=== PATIENT | male | born 1935 | race Caucasian/White ===

== ENCOUNTER 2021-10-15 21:52 | Emergency (ER) | payer MEDICARE ==
[2021-10-15] MEDS ORDERED: DIGOXIN0.125 MG PO (22:40)
[2021-10-15] MEDS ORDERED: DOXYCYC MONO100 M2 PO (22:41)
[2021-10-15] MEDS ORDERED: ALLOPURINOL100 MG PO (22:41)
[2021-10-15] MEDS ORDERED: K-DUR/KLOR-CON20 MEQ PO ×2 (22:42→23:50)
[2021-10-15] MEDS ORDERED: METOPROL TAR25 MG PO (22:43)
[2021-10-15] MEDS ORDERED: SIMVASTATIN10 MG PO (22:44)
[2021-10-15] MEDS ORDERED: ELIQUIS2.5 MG (22:45)
[2021-10-15] MEDS ORDERED: FUROSEMIDE20 MG PO (22:45)
[2021-10-15 22:47] LABS: HEMATOCRIT 32.5 % (39.0-50.0); HEMOGLOBIN 10.4 g/dl (14.0-18.0); IMMATURE GRANULOCYTES 0.2 % (0.0-5.0); MEAN CELL VOLUME 95.6 fL CALC (80.0-100.0); MEAN CORPUSCULAR HGB 30.6 pG CALC (26.0-32.0); NEUT# 3.42 thou/uL (1.82-7.42); RED BLOOD COUNT 3.4 mill/uL (4.70-6.10); RED CELL DISTRI WIDTH 15.9 % (11.5-15.5)
[2021-10-15 23:07] LABS: ALBUMIN 3.7 g/dL (3.2-5.0); ALKALINE PHOSPHATASE 136 u/l (38-126); ANION GAP 15 (6-22 (CALC)); BILIRUBIN, TOTAL 0.9 mg/dL (0.0-1.4); BUN 29 mg/dL (8-23); BUN/CREATININE RATIO 20 (12-20 (CALC)); CARBON DIOXIDE 23 mmol/l (22-30); CHLORIDE 102 mmol/l (95-108); CREATININE 1.4 mg/dL (0.7-1.3); GFR 48 ML/MIN (>=60 (CALC)); GFR FOR AFR.AMER. 58 ML/MIN (>=60 (CALC)); POTASSIUM 4.2 mmol/l (3.5-5.1); SGOT/AST 43 u/l (19-48); SODIUM 135 mmol/l (137-146); TOTAL PROTEIN 6.9 g/dL (6.3-8.2)
[2021-10-15 23:19] LABS: MYOGLOBIN 104 ng/mL (0 - 121)
[2021-10-15] MEDS ORDERED: LASIX20 MG PO (23:50)
[2021-10-15] MEDS ORDERED: METOLAZONE5 MG PO (23:50)
[2021-10-16 00:26] VITALS: BP 156/89
== END 2021-10-16 00:25 | disposition home or self-care (01) ==
LOC: ED 21:52
PROVIDERS: Family Medicine
DX: I11.0 Hypertensive heart disease with heart failure (principal); I50.9 Heart failure, unspecified; I48.91 Unspecified atrial fibrillation; M10.9 Gout, unspecified

== ENCOUNTER 2021-10-25 13:41 | Emergency (ER) | payer MEDICARE ==
[~2021-10-25] VITALS: Ht 162.6 cm; Wt 73.2 kg
[~2021-10-25 13:41] MED LIST: ALLOPURINOL100 MG PO; DIGOXIN0.125 MG PO; DOXYCYC MONO100 M2 PO; ELIQUIS2.5 MG; FUROSEMIDE20 MG PO; K-DUR/KLOR-CON20 MEQ PO; LASIX20 MG PO; METOLAZONE5 MG PO; METOPROL TAR25 MG PO; SIMVASTATIN10 MG PO
[2021-10-25 14:24] VITALS: BP 121/59
== END 2021-10-25 14:24 | disposition home or self-care (01) ==
LOC: ED 13:41
DX: Z46.6 Encounter for fitting and adjustment of urinary device (principal); I48.91 Unspecified atrial fibrillation; I10 Essential (primary) hypertension; M10.9 Gout, unspecified

== ENCOUNTER 2021-10-26 07:03 | Emergency (ER) | payer MEDICARE ==
[~2021-10-26] VITALS: Ht 162.6 cm; Wt 80.0 kg
[2021-10-26 07:18] VITALS: BP 144/82
== END 2021-10-26 07:56 | disposition home or self-care (01) ==
LOC: ED 07:03
PROC: 0T9B70Z Drainage of Bladder with Drainage Device, Via Natural or Artificial Opening (ICD-10-PCS; principal; 2021-10-26)
DX: N40.1 Benign prostatic hyperplasia with lower urinary tract symptoms (principal); R33.8 Other retention of urine; I10 Essential (primary) hypertension; I48.91 Unspecified atrial fibrillation; M10.9 Gout, unspecified

== ENCOUNTER 2021-11-13 14:29 | Emergency (ER) | payer MEDICARE ==
[~2021-11-13] VITALS: Ht 162.6 cm; Wt 64.0 kg
[2021-11-13 15:44] VITALS: BP 120/68
== END 2021-11-13 15:38 | disposition home or self-care (01) ==
LOC: ED 14:29
DX: Z46.6 Encounter for fitting and adjustment of urinary device (principal); I10 Essential (primary) hypertension; I48.91 Unspecified atrial fibrillation; M10.9 Gout, unspecified

== ENCOUNTER 2022-03-09 22:48 | Emergency (ER) | payer MEDICARE ==
[~2022-03-09] VITALS: Ht 162.6 cm; Wt 77.0 kg
[2022-03-09 23:43] LABS: HEMATOCRIT 36.6 % (39.0-50.0); HEMOGLOBIN 11.8 g/dl (14.0-18.0); IMMATURE GRANULOCYTES 0.1 % (0.0-5.0); MEAN CELL VOLUME 99.5 fL CALC (80.0-100.0); MEAN CORPUSCULAR HGB 32.1 pG CALC (26.0-32.0); MEAN CORPUSCULAR HGB CONC 32.2 g/dL CAL (32.0-36.0); RED BLOOD COUNT 3.68 mill/uL (4.70-6.10)
[2022-03-09 23:49] LABS: ALBUMIN 3.5 g/dL (3.2-5.0); ALKALINE PHOSPHATASE 151 u/l (38-126); BUN 24 mg/dL (8-23); BUN/CREATININE RATIO 19 (12-20 (CALC)); CARBON DIOXIDE 24 mmol/l (22-30); CHLORIDE 107 mmol/l (95-108); CREATININE 1.3 mg/dL (0.7-1.3); GFR 52 ML/MIN (>=60 (CALC)); GFR FOR AFR.AMER. > 60 ML/MIN (>=60 (CALC)); TOTAL PROTEIN 6.7 g/dL (6.3-8.2)
[2022-03-09 23:51] LABS: ANION GAP 15 (6-22 (CALC)); BILIRUBIN, TOTAL 0.5 mg/dL (0.0-1.4); SGOT/AST 80 u/l (19-48); SODIUM 142 mmol/l (137-146)
[2022-03-10 00:01] LABS: MYOGLOBIN 71 ng/mL (0 - 121)
[2022-03-10] MEDS ORDERED: ZITHROMAX250 MG PO (00:16)
[2022-03-10 00:44] VITALS: BP 103/60
[2022-03-11] MEDS ORDERED: KLOR-CON M1010 MEQ PO (09:35)
[2022-03-11] MEDS ORDERED: ELIQUIS5 MG PO (09:36)
[2022-03-11] MEDS ORDERED: FUROSEMIDE20 MG PO (09:36)
[2022-03-11] MEDS ORDERED: ZOCOR20 M1 PO (09:38)
[2022-03-11] MEDS ORDERED: TOPROL XL25 M1 PO (09:39)
[2022-03-11] MEDS ORDERED: FINASTERIDE5 MG PO (09:39)
[2022-03-11] MEDS ORDERED: TAMSULOSIN HCL0.4 MG PO (09:40)
[2022-03-11] MEDS ORDERED: HYDROCO/APAP1 TA9 PO (09:40)
[2022-03-11] MEDS ORDERED: DOCUSATE CAL240 MG PO (09:41)
== END 2022-03-10 00:44 | disposition home or self-care (01) ==
LOC: ED 22:48
PROVIDERS: Emergency Medicine
DX: J18.9 Pneumonia, unspecified organism (principal); I10 Essential (primary) hypertension; I48.91 Unspecified atrial fibrillation; M10.9 Gout, unspecified; Z20.822 Contact with and (suspected) exposure to COVID-19

== ENCOUNTER 2022-03-11 02:39 | Observation (INO) | payer MEDICARE ==
[2022-03-11] VITALS (17 sets, daily range): BP systolic 92–130; BP diastolic 48–78
[~2022-03-11] VITALS: Ht 162.6 cm; Wt 77.0 kg
[~2022-03-11 02:39] MED LIST changes: +ZITHROMAX250 MG PO
[2022-03-11 03:15] LABS: HEMATOCRIT 40.8 % (39.0-50.0); HEMOGLOBIN 12.9 g/dl (14.0-18.0); IMMATURE GRANULOCYTES 0.3 % (0.0-5.0); MEAN CELL VOLUME 99.5 fL CALC (80.0-100.0); MEAN CORPUSCULAR HGB 31.5 pG CALC (26.0-32.0); MEAN CORPUSCULAR HGB CONC 31.6 g/dL CAL (32.0-36.0); NEUT# 3.83 thou/uL (1.82-7.42); RED BLOOD COUNT 4.1 mill/uL (4.70-6.10); RED CELL DISTRI WIDTH 14.9 % (11.5-15.5)
[2022-03-11 03:30] LABS: ALKALINE PHOSPHATASE 189 u/l (38-126); ANION GAP 23 (6-22 (CALC)); BILIRUBIN, TOTAL 0.7 mg/dL (0.0-1.4); BUN 26 mg/dL (8-23); BUN/CREATININE RATIO 22 (12-20 (CALC)); CARBON DIOXIDE 20 mmol/l (22-30); CHLORIDE 105 mmol/l (95-108); CREATININE 1.2 mg/dL (0.7-1.3); GFR 57 ML/MIN (>=60 (CALC)); GFR FOR AFR.AMER. > 60 ML/MIN (>=60 (CALC)); POTASSIUM 4.3 mmol/l (3.5-5.1); SGOT/AST 133 u/l (19-48); SODIUM 143 mmol/l (137-146); TOTAL PROTEIN 7.1 g/dL (6.3-8.2)
[2022-03-11 03:31] LABS: INTERNATIONAL NORMALIZED RATIO 1.1 RATIO (0.7-1.3)
[2022-03-11] MEDS ORDERED: KLOR-CON M1010 MEQ PO (09:35)
[2022-03-11] MEDS ORDERED: ELIQUIS5 MG PO (09:36)
[2022-03-11] MEDS ORDERED: FUROSEMIDE20 MG PO (09:36)
[2022-03-11] MEDS ORDERED: ZOCOR20 M1 PO (09:38)
[2022-03-11] MEDS ORDERED: TOPROL XL25 M1 PO (09:39)
[2022-03-11] MEDS ORDERED: FINASTERIDE5 MG PO (09:39)
[2022-03-11] MEDS ORDERED: TAMSULOSIN HCL0.4 MG PO (09:40)
[2022-03-11] MEDS ORDERED: HYDROCO/APAP1 TA9 PO (09:40)
[2022-03-11] MEDS ORDERED: DOCUSATE CAL240 MG PO (09:41)
== END 2022-03-11 12:30 | disposition home or self-care (01) ==
LOC: ED 02:39 → ED-I 05:00 → ED 05:34 → MS2 05:35
PROVIDERS: Emergency Medicine; ADMIT Hospitalist; ATTEND Hospitalist
PROC: 0HQGXZZ Repair Left Hand Skin, External Approach (ICD-10-PCS; principal; 2022-03-11)
DX: S01.81XA Laceration without foreign body of other part of head, initial encounter (principal); S61.012A Laceration without foreign body of left thumb without damage to nail, initial encounter; I10 Essential (primary) hypertension; I48.91 Unspecified atrial fibrillation; M10.9 Gout, unspecified; F03.91 Unspecified dementia, unspecified severity, with behavioral disturbance; W01.0XXA Fall on same level from slipping, tripping and stumbling without subsequent striking against object, initial encounter; Y92.009 Unspecified place in unspecified non-institutional (private) residence as the place of occurrence of the external cause; Z79.01 Long term (current) use of anticoagulants; Z78.1 Physical restraint status
CPT/HCPCS: S0166

== ENCOUNTER 2022-05-19 16:02 | Observation (INO) | payer MEDICARE ==
[2022-05-19] VITALS (8 sets, daily range): BP systolic 88–129; BP diastolic 61–79
[~2022-05-19] VITALS: Ht 175.3 cm; Wt 67.0 kg
[~2022-05-19 16:02] MED LIST changes: +DOCUSATE CAL240 MG PO; +ELIQUIS5 MG PO; +FINASTERIDE5 MG PO; +HYDROCO/APAP1 TA9 PO; +KLOR-CON M1010 MEQ PO; +TAMSULOSIN HCL0.4 MG PO; +TOPROL XL25 M1 PO; +ZOCOR20 M1 PO
--- NOTE | 2022-05-19 16:10 | NUR ---
PT REFUSING TO WEAR GOWN AND STATES I AM GOING TO WEAR MY OWN CLOTHES
[2022-05-19 16:41] LABS: HEMATOCRIT 35.7 % (39.0-50.0); HEMOGLOBIN 11.5 g/dl (14.0-18.0); IMMATURE GRANULOCYTES 0.3 % (0.0-5.0); MEAN CELL VOLUME 102.6 fL CALC (80.0-100.0); MEAN CORPUSCULAR HGB CONC 32.2 g/dL CAL (32.0-36.0); NEUT# 3.53 thou/uL (1.82-7.42); RED BLOOD COUNT 3.48 mill/uL (4.70-6.10); RED CELL DISTRI WIDTH 15.9 % (11.5-15.5)
[2022-05-19 16:54] LABS: ALBUMIN 3.9 g/dL (3.2-5.0); ALKALINE PHOSPHATASE 126 u/l (38-126); BILIRUBIN, TOTAL 0.8 mg/dL (0.0-1.4); BUN 24 mg/dL (8-23); BUN/CREATININE RATIO 17 (12-20 (CALC)); CARBON DIOXIDE 23 mmol/l (22-30); CHLORIDE 103 mmol/l (95-108); CREATININE 1.4 mg/dL (0.7-1.3); GFR FOR AFR.AMER. 58 ML/MIN (>=60 (CALC)); GFR OTHER RACES 48 ML/MIN (>=60 (CALC)); LIPASE 189 u/l (23-300); POTASSIUM 4.2 mmol/l (3.5-5.1); TOTAL PROTEIN 7.2 g/dL (6.3-8.2)
[2022-05-19 16:55] LABS: ANION GAP 13 (6-22 (CALC)); SGOT/AST 33 u/l (19-48); SODIUM 135 mmol/l (137-146)
[2022-05-19 16:56] LABS: ACT PARTIAL THROMBO TIME 29.2 SECONDS (20.0-32.5); INTERNATIONAL NORMALIZED RATIO 1.2 RATIO (0.7-1.3); PROTHROMBIN TIME 12.1 SECONDS (9.0-12.5)
--- NOTE | 2022-05-19 18:08 | NUR ---
PT XFERED TO RM 280. PT VSS. PT IN NO ACUTE DISTRESS.
[2022-05-19 19:46] LABS: URINE BILIRUBIN - DIPSTICK NEGATIVE (NEGATIVE); URINE BLOOD DIPSTICK NEGATIVE (NEGATIVE); URINE COLOR YELLOW; URINE GLUCOSE - DIPSTICK NEGATIVE (NEGATIVE); URINE KETONE NEGATIVE (NEGATIVE); URINE LEUK ESTERASE NEGATIVE (NEGATIVE); URINE PH 5.5 (4.5-8.0); URINE PROTEIN - DIPSTICK NEGATIVE (NEG-TRACE); URINE SPECIFIC GRAVITY >=1.030; URINE UROBILINOGEN - DIPSTICK 0.2 E.U./dL (0.2)
[2022-05-19 19:47] LABS: URINE NITRITE - DIPSTICK NEGATIVE (Negative)
--- NOTE | 2022-05-19 20:00 | NUR ---
PT ALERT AND ORIENTED. ON 3L NC. COMPLAINING OF SOB THAT REQUIRES HIM TO SIT UP AT THE END OF THE BED WITH HEAD ALMOST BETWEEN HIS KNEES. VITAL SIGNS CHECKED AND CONFIRMED THAT HIS O2SAT REMAINS 95% TO 97%. PT EDUCATED ON WHAT THAT ACTUALLY MEANS FOR HIM. PTS SON CALLED A FEW TIMES TO CHECK IN AND UPDATE WAS GIVEN. CALL LIGHT AND SAFETY PRECAUTIONS IN PLACE.
--- NOTE | 2022-05-20 | NUR ---
PT ALERT AND ORIENTED. AMBUATED TO BATHROOM WITH STANDBY ASSIST AND OXYGEN EXTENTIONS. SOB IMPROVED, PT SHOWING NO SIGS OF DISTRESS. VITAL SIGNS WITHIN NORMAL LIMITS. WILL CONTINUE TO MONITOR CLOSELY.
[2022-05-20 00:08] VITALS: BP 129/79
[2022-05-20 03:53] VITALS: BP 129/66
--- NOTE | 2022-05-20 04:00 | NUR ---
SHIFT REASSESSMENT - PT DENIES PAIN. NO SIGNS OF SHORTNESS OF BREATHE. VITAL SIGNS WITHIN NORMAL LIMITS. CALL LIGHT WITHIN REACH AND SAFETY PRECAUTIONS IN PLACE. WILL CONTINUE TO MONITOR CLOSELY.
[2022-05-20 04:59] LABS: HEMATOCRIT 34.1 % (39.0-50.0); HEMOGLOBIN 10.7 g/dl (14.0-18.0); MEAN CORPUSCULAR HGB 32.6 pG CALC (26.0-32.0); MEAN CORPUSCULAR HGB CONC 31.4 g/dL CAL (32.0-36.0); RED BLOOD COUNT 3.28 mill/uL (4.70-6.10); RED CELL DISTRI WIDTH 15.9 % (11.5-15.5)
[2022-05-20 05:05] VITALS: BP 129/66
[2022-05-20 05:18] LABS: ANION GAP 13 (6-22 (CALC)); BUN 24 mg/dL (8-23); BUN/CREATININE RATIO 19 (12-20 (CALC)); CARBON DIOXIDE 23 mmol/l (22-30); CHLORIDE 104 mmol/l (95-108); CREATININE 1.3 mg/dL (0.7-1.3); GFR FOR AFR.AMER. > 60 ML/MIN (>=60 (CALC)); GFR OTHER RACES 52 ML/MIN (>=60 (CALC)); MAGNESIUM 1.8 mg/dL (1.6-2.3); POTASSIUM 4.4 mmol/l (3.5-5.1); SODIUM 135 mmol/l (137-146)
[2022-05-20 06:18] VITALS: BP 118/66
[2022-05-20 08:00] VITALS: BP 118/66
--- NOTE | 2022-05-20 08:00 | NUR ---
AWAKE, ALERT, SITTING ON SIDE OF BED, ATE BREAKFAST, USED BATHROOM, NO SIGNS OR SYMPTOMS OF DISTRESS NOTED OR VOICED.
[2022-05-20 10:25] VITALS: BP 121/58
[2022-05-20] MEDS ORDERED: AZITHROMYCIN500 MG PO (11:46)
--- NOTE | 2022-05-20 12:10 | NUR ---
AWAKE, ALERT, NO SIGNS OR SYMPTOMS OF DISTRESS NOTED OR VOICED. DISCHARGING HOME WITH HOME HEALTH SERVICES, MEDICATIONS AND INSTRUCTIONS GONE OEVER AND UNDERSTANDING VERBALIZED, IV REMOVED.
== END 2022-05-20 13:52 | disposition home health service (06) ==
LOC: ED 16:02 → ED-I 17:00 → ED 17:22 → MS2 17:23
PROVIDERS: ADMIT Hospitalist; ATTEND Hospitalist
DX: J18.9 Pneumonia, unspecified organism (principal); I11.0 Hypertensive heart disease with heart failure; I50.9 Heart failure, unspecified; J96.01 Acute respiratory failure with hypoxia; E87.2 Acidosis; I48.91 Unspecified atrial fibrillation; M10.9 Gout, unspecified; F03.90 Unspecified dementia, unspecified severity, without behavioral disturbance, psychotic disturbance, mood disturbance, and anxiety; Z20.822 Contact with and (suspected) exposure to COVID-19; Z79.01 Long term (current) use of anticoagulants

== ENCOUNTER 2022-06-09 08:45 | Inpatient (IN) | payer MEDICARE ==
[2022-06-09] VITALS (139 sets, daily range): BP systolic 46–142; BP diastolic 25–95
[~2022-06-09] VITALS: Ht 175.3 cm; Wt 66.0 kg
[~2022-06-09 08:45] MED LIST changes: +AZITHROMYCIN500 MG PO
--- NOTE | 2022-06-09 09:15 | NUR ---
PT BROUGHT IN VIA EMS TO TX ROOM, STABLE
[2022-06-09 09:25] LABS: HEMATOCRIT 35.6 % (39.0-50.0); HEMOGLOBIN 11.7 g/dl (14.0-18.0); IMMATURE GRANULOCYTES 0.1 % (0.0-5.0); MEAN CELL VOLUME 98.9 fL CALC (80.0-100.0); MEAN CORPUSCULAR HGB 32.5 pG CALC (26.0-32.0); MEAN CORPUSCULAR HGB CONC 32.9 g/dL CAL (32.0-36.0); NEUT# 5.08 thou/uL (1.82-7.42); RED BLOOD COUNT 3.6 mill/uL (4.70-6.10); RED CELL DISTRI WIDTH 15.6 % (11.5-15.5)
[2022-06-09 09:41] LABS: INTERNATIONAL NORMALIZED RATIO 1.1 RATIO (0.7-1.3)
[2022-06-09 09:43] LABS: ALKALINE PHOSPHATASE 132 u/l (38-126); BILIRUBIN, TOTAL 0.7 mg/dL (0.0-1.4); BUN 32 mg/dL (8-23); BUN/CREATININE RATIO 17 (12-20 (CALC)); CARBON DIOXIDE 20 mmol/l (22-30); CHLORIDE 106 mmol/l (95-108); CREATININE 1.9 mg/dL (0.7-1.3); GFR FOR AFR.AMER. 41 ML/MIN (>=60 (CALC)); GFR OTHER RACES 34 ML/MIN (>=60 (CALC)); SODIUM 134 mmol/l (137-146); TOTAL PROTEIN 6.1 g/dL (6.3-8.2)
[2022-06-09 09:47] LABS: ALBUMIN 3.1 g/dL (3.2-5.0); ANION GAP 14 (6-22 (CALC)); POTASSIUM 5.5 mmol/l (3.5-5.1); SGOT/AST 71 u/l (19-48)
[2022-06-09 11:09] LABS: URINE BILIRUBIN - DIPSTICK NEGATIVE (NEGATIVE); URINE BLOOD DIPSTICK TRACE-INTACT (NEGATIVE); URINE COLOR YELLOW; URINE GLUCOSE - DIPSTICK 100 mg/dL (NEGATIVE); URINE KETONE NEGATIVE (NEGATIVE); URINE LEUK ESTERASE NEGATIVE (NEGATIVE); URINE PH 5.5 (4.5-8.0); URINE PROTEIN - DIPSTICK NEGATIVE (NEG-TRACE); URINE UROBILINOGEN - DIPSTICK 0.2 E.U./dL (0.2)
[2022-06-09 11:12] LABS: URINE NITRITE - DIPSTICK NEGATIVE (Negative)
--- NOTE | 2022-06-09 12:47 | NUR ---
Reassessment of patient completed. No distress noted.
--- NOTE | 2022-06-09 12:47 | NUR ---
LEVO STARTED AT 0930 FOR HYPOTENSION
--- NOTE | 2022-06-09 14:19 | NUR ---
unabble to reconcile meds, unable to verify medications
--- NOTE | 2022-06-09 14:19 | NUR ---
report given to horticultural nursery assistant
--- NOTE | 2022-06-09 18:34 | NUR ---
Patient was placed back on levo due to low blood pressures. Patient's family was updated. Will continue to monitor.
--- NOTE | 2022-06-09 19:30 | NUR ---
awake. nad. hob remains elevated. clinical admissions manager shows a fib pvcs. #20 rac. ivf infusing well. po fluids taken well. voids per urinal. rt eye is bruised & swollen. bandage cont to forehead. has multi bruises & skin tears on body. bilat nasal tampons cont. no active nasal bleeding. requires much assist with needs. fall precautions & bed alarm conts.
--- NOTE | 2022-06-09 22:00 | NUR ---
naps for short intervals. nad. pt does say he nasal tampons are "aggravating." no active bleeding.
[2022-06-10] VITALS (133 sets, daily range): BP systolic 63–130; BP diastolic 38–77
--- NOTE | 2022-06-10 00:01 | NUR ---
awake freq. no distress. school lunch monitor shows a fib.
--- NOTE | 2022-06-10 02:00 | NUR ---
eyes closed. no distress. no active bleeding.
--- NOTE | 2022-06-10 04:00 | NUR ---
up tp bsc per request. no bm.
--- NOTE | 2022-06-10 05:00 | NUR ---
lab here. blood drawn.
--- NOTE | 2022-06-10 07:22 | NUR ---
BEDSIDE REPORT DONE. PATIENT IS STILL HAVING A HEADACHE. PATIENT RECEIVED TYLENOL. CALL LIGHT WITHIN REACH. WILL CONTINUE TO MONITOR.
--- NOTE | 2022-06-10 08:01 | NUR ---
UPDATE WAS GIVEN TO PATIENT'S SON. PATIENT IS EATING AND DRINKING. BLOOD PRESSURE IS STABLE AT 113/55. WILL CONTINUE TO MONITOR,.
[2022-06-10 09:55] LABS: HEMATOCRIT 37.4 % (39.0-50.0); HEMOGLOBIN 12.4 g/dl (14.0-18.0); IMMATURE GRANULOCYTES 0.2 % (0.0-5.0); MEAN CELL VOLUME 98.7 fL CALC (80.0-100.0); MEAN CORPUSCULAR HGB 32.7 pG CALC (26.0-32.0); MEAN CORPUSCULAR HGB CONC 33.2 g/dL CAL (32.0-36.0); NEUT# 6.8 thou/uL (1.82-7.42); RED BLOOD COUNT 3.79 mill/uL (4.70-6.10); RED CELL DISTRI WIDTH 15.2 % (11.5-15.5)
[2022-06-10 10:05] LABS: CREATININE 1.4 mg/dL (0.7-1.3)
[2022-06-10 10:06] LABS: POTASSIUM 5.2 mmol/l (3.5-5.1)
[2022-06-10] MEDS ORDERED: TAMSULOSIN0.4 MG PO (10:11)
[2022-06-10] MEDS ORDERED: JARDIANCE10 MG PO (10:12)
[2022-06-10] MEDS ORDERED: ENTRESTO 49-511 TAB PO (10:12)
[2022-06-10] MEDS ORDERED: DIGOXIN125 MCG PO (10:19)
[2022-06-10] MEDS ORDERED: MELATONIN5 M3 PO (10:20)
[2022-06-10] MEDS ORDERED: AMOXICILLIN500 M2 PO (10:20)
--- NOTE | 2022-06-10 12:30 | NUR ---
REMOVED RHINO ROCKETS FROM PATIENTS NOSE WITHOUT COMPLICATIONS. REMOVED PER DR TYLER. PATIENT WAS FELT RELEIFED AFTER REMOVAL. WILL CONTINUE TO MONITOR FOR SIGNS OF BLEEDING.
--- NOTE | 2022-06-10 15:26 | NUR ---
PATIENT'S BLOOD PRESSURE WAS SUSTAINING IN THE LOW 80S SYSTOLIC AND MAP WAS BELOW 60 AT 1414 SO LEVO GTT WAS STARTED AT 8MCG/MIN AFTER A COUPLE OF MINUTES TO 9 MCG/MIN BLOOD PRESSURE STARTED TO STABILIZE SO NURSE STARTED TITRIATING DOWN CURRENTLY LEVO GTT IS AT 6MCG/MIN WITH A BLOOD PRESSURE OF 103/66 MAP OF 76. WILL CONTINUE TO MONITOR
--- NOTE | 2022-06-10 19:55 | NUR ---
ASSESSMENT COMPLETED. LUNG SOUNDS DIMINISHED. BRUISING TO R UPPER SIDE OF FACE AND NOSE. LEVOPHED GTT TITRATED DOWN TO 4 MCG/MIN. ORAL CARE PROVIDED. SAFETY PRECAUTIONS IN PLACE.
--- NOTE | 2022-06-10 23:05 | NUR ---
ROUNDING COMPLETE. PT APPEARS TO BE RESTING COMFORTABLEY. LEVOPHED DRIP HAS BEEN TITRATED UP TO 7 MCG/MIN R/T MAP BEING BELOW 65. CURRENT BP 96/56 (69). HT 71 AFIB. WILL CONTINUE TO MONITOR VITAL SIGNS.
[2022-06-11] VITALS (101 sets, daily range): BP systolic 76–139; BP diastolic 43–99
--- NOTE | 2022-06-11 01:57 | NUR ---
ROUNDING COMPLETED. PT APPEARS TO BE RESTING COMFORTABLY. NEURO STATUS REMAINS UNCHANGED. BP 107/59 (69) W/ LEVOPHED AT 7 MCG/MIN. WILL CONTINUE TO MONITOR VITAL SIGNS. SAFETY PRECAUTIONS MAINTAINED.
--- NOTE | 2022-06-11 04:22 | NUR ---
ROUNDING COMPLETED. NEURO STATUS UNCHANGED. PT STATES NO PAIN AT THIS TIME. LEVOPHED DRIP REMAINS AT 7 MCG/MIN, BP 104/58 (79). IV SITE APPEARS HEALTHY AND NONPAINFUL. PERIPHERAL PULSES EQUAL. URINE OUTPUT ADEQUATE.
[2022-06-11 05:57] LABS: HEMATOCRIT 35.6 % (39.0-50.0); HEMOGLOBIN 11.8 g/dl (14.0-18.0); MEAN CELL VOLUME 98.3 fL CALC (80.0-100.0); MEAN CORPUSCULAR HGB 32.6 pG CALC (26.0-32.0); MEAN CORPUSCULAR HGB CONC 33.1 g/dL CAL (32.0-36.0); RED BLOOD COUNT 3.62 mill/uL (4.70-6.10); RED CELL DISTRI WIDTH 15.6 % (11.5-15.5)
[2022-06-11 06:05] LABS: ANION GAP 8 (6-22 (CALC)); BUN 22 mg/dL (8-23); BUN/CREATININE RATIO 21 (12-20 (CALC)); CARBON DIOXIDE 21 mmol/l (22-30); CHLORIDE 110 mmol/l (95-108); GFR FOR AFR.AMER. > 60 ML/MIN (>=60 (CALC)); GFR OTHER RACES > 60 ML/MIN (>=60 (CALC)); MAGNESIUM 1.8 mg/dL (1.6-2.3); POTASSIUM 4.8 mmol/l (3.5-5.1); SODIUM 134 mmol/l (137-146)
--- NOTE | 2022-06-11 06:15 | NUR ---
ROUNDING COMPLETE. PT APPEARS TO BE RESTING WELL. LEVOPHED DRIP INFUSING AT 7 MCG/MIN. BP 100/52 (72) HR 72. SAFETY PRECAUTIONS IN PLACE.
--- NOTE | 2022-06-11 07:34 | NUR ---
RECEIVED REPORT FROM Arnulfo MADERA RN. PT RESTING IN BED WITH EYES CLOSED, REGULAR CHEST RISE AND FALL, NO SIGN OF ACUTE DISTRESS. LAST SET OF VITALS 0700 TAKEN AT STABLE, WNL. SEE VS FLOWSHEET. IVF INFUSING AT PRESCRIBED RATE, IV SITE WITHOUT REDNESS, EDEMA, OR STREAKING, DRESSING CDI. BED AT IT LOWEST, LOCKED POSITION WITH SIDE RAILS UP X2. PATIENTS BELONGINGS AT BEDSIDE. CALL LIGHT IN REACH.
--- NOTE | 2022-06-11 11:36 | NUR ---
PT SEEN AWAKE, ALERT, ORIENTED X 3. LABETALOL DRIP BEING TITRATED AT THIS TIME, STARTED TODAY AT 7 MM, NOW DOWN TO 5 MCG/MIN. PT EXPRESSES FEAR OF NEEDLES, WILL NOT ALLOW FURTHER ACCUCHECKS.
--- NOTE | 2022-06-11 12:57 | NUR ---
PT USES URINAL NEEDED, NO SPILLAGE. LEVOPHED TITRATED TO 5 MCG/MIN, BP 97/56. PT EATING MINIMAL AMOUNT PER MEAL, STATES THAT HE DOES NOT WANT TO HAVE BM WHILE IN HOSPITAL.
--- NOTE | 2022-06-11 16:04 | NUR ---
PT SEEN AT REST IN THE BED AT THIS TIME. LEVOPHED IS AT 7.5 M/M WITH BP 106/58.
--- NOTE | 2022-06-11 18:12 | NUR ---
LEVO NOW AT 7 MCG/MIN, BP 117/60. PT CONTINUES COOPERATIVE. SON HAS VISITED.
--- NOTE | 2022-06-11 18:55 | NUR ---
REPORT RECEIVED FROM Manolo RICHARD RN.
--- NOTE | 2022-06-11 19:01 | NUR ---
LEVOPHED DRIP AT 7 MCG/MIN B/P 100/61.
--- NOTE | 2022-06-11 19:15 | NUR ---
ASSESMENT COMPLETED AT THIS TIME. PATIENT ALERT AND ORIENTED X3.IRRIGULAR HEART RATE, CLEAR/DIMMINISHED LUNG SOUNDS. PATIENT CURRENTLY ON A LOPHED DRIP, RUNNING AT 7MCG/MIN, INFSUING NORMAL SALINE AT 30ML/HR. IV SITE #20 IN RFA INFUSING, IV SITE HEALTHY PATENT. PATIENT HAS NOTABLE LACERATION ON RIGHT SIDE OF FOREHEAD, ACCOMPANIED BY BRUISING BELOW HIS RIGHT EYE. DENIES ANY CURRENT PAIN OR DISCOMFORT AT THIS TIME. FAMILY FRIEND AT BEDSIDE. PATIENT EDUCATED ON PLAN OF CARE, ORIENTED TO CALL LIGHT SYSTEM. CALL LIGHT AND BEDSIDE TABLE WITHIH REACH. BED ALARM IN PLACE FOR SAFETY.
--- NOTE | 2022-06-11 19:19 | NUR ---
BLOOD PRESSURE 93/60 LEVOPHED TITRATED UP TO 7MCG/MIN BLOOD PRESSURE REASSESMENT 139/69
--- NOTE | 2022-06-11 19:27 | NUR ---
PATIENT USING URINAL DURING LAST B/P. REASSESED BLOOD PRESSURE B/P 111/58
--- NOTE | 2022-06-11 20:15 | NUR ---
MEDICATIONS ADMINISTERED AT THIS TIME. PATIENT EDUCATED ON MEDICATIONS, VERBALIZES UNDERSTANDING.
--- NOTE | 2022-06-11 20:15 | NUR ---
TYLENOL ADMINISTERED FOR HEADACHE 02/01.
--- NOTE | 2022-06-11 20:40 | NUR ---
UPDATE PROVIDED CELESTE PACHECO.
--- NOTE | 2022-06-11 20:49 | NUR ---
PATIENT CONTINUES TO MOVE ARM WHILE B/P CUFF IS INFLATING. EDUCATED ON IMPORTANCE OF MAINING ARM STEADY FOR ACCURATE READING. REASSED B/P 128/65.
--- NOTE | 2022-06-11 21:05 | NUR ---
PAIN REASSEMENT. PATIENT REPORTS PAIN SCALED 1/10.
[2022-06-12] VITALS (87 sets, daily range): BP systolic 74–140; BP diastolic 47–101
--- NOTE | 2022-06-12 00:05 | NUR ---
PATIENT RESTING COMFORTABLY. DENIES ANY CURRENT NEEDS. NEW BAG OF LEVOPHED 4MG IN DEXTROSE 5% 250 ML BAG HUNG AT THIS TIME. TITRATION REMAINS AT 7 MCG/MIN, CURRENT BLOOD PRESSURE AT 99/59.
--- NOTE | 2022-06-12 01:54 | NUR ---
PATIENT RESTING COMFORTABLY, AWOKEN BY WRITTER, DENIES ANY CURRENT PAIN OR FURTHER NEEDS AT THIS TIME. CALL LIGHT AND BEDSIDE TABLE WITHIN REACH.
--- NOTE | 2022-06-12 01:56 | NUR ---
LEVOPHED REIMANS AT 7MCG / MIN, CURRENT BLOOD PRESSURE 101/52.
--- NOTE | 2022-06-12 02:38 | NUR ---
TYLENOL ADMINISTERED FOR HEADACHE 02/01
--- NOTE | 2022-06-12 03:20 | NUR ---
PAIN REASSESMENT 12/04. PATIENT REPORTS FEELING A LOT BETTER.
--- NOTE | 2022-06-12 03:35 | NUR ---
LEVOPHED TITRATED DOWN TO 6MCG/MIN PATIENT CURRENT BLOOD PRESSURE 140/85
[2022-06-12 05:16] LABS: ANION GAP 8 (6-22 (CALC)); BUN 17 mg/dL (8-23); BUN/CREATININE RATIO 16 (12-20 (CALC)); CARBON DIOXIDE 22 mmol/l (22-30); CHLORIDE 109 mmol/l (95-108); CREATININE 1.1 mg/dL (0.7-1.3); GFR FOR AFR.AMER. > 60 ML/MIN (>=60 (CALC)); GFR OTHER RACES > 60 ML/MIN (>=60 (CALC)); MAGNESIUM 1.7 mg/dL (1.6-2.3); POTASSIUM 4.9 mmol/l (3.5-5.1); SODIUM 134 mmol/l (137-146)
--- NOTE | 2022-06-12 06:07 | NUR ---
PATIENT RESTING COMFORTBALY, REIMAINS ON LEVOPHED DRIP AT 6MCG/MIN, CURRENT B/P 105/56. CALL LIGHT AND BEDSIDE TABLE WITHIN REACH.
--- NOTE | 2022-06-12 08:45 | NUR ---
DR HOGAN IN AT BEDSIDE.
--- NOTE | 2022-06-12 09:31 | NUR ---
RECEIVED REPORT FROM MELODY BA. PT RESTING IN BED WITH EYES CLOSED, REGULAR CHEST RISE AND FALL, NO SIGN OF ACUTE DISTRESS. LAST SET OF VITALS TAKEN AT 0700 STABLE, WNL. SEE VS FLOWSHEET. IVF INFUSING AT PRESCRIBED RATE, IV SITE WITHOUT REDNESS, EDEMA, OR STREAKING, DRESSING CDI. PT ON ROOM AIR; SPO2> 98%. BED IS AT IT LOWEST, LOCKED POSITION WITH SIDE RAILS UP X2. PATIENTS BELONGINGS AT BEDSIDE. CALL LIGHT IN REACH.
--- NOTE | 2022-06-12 09:50 | NUR ---
PHYSICAL THERAPY IN WITH PT.
--- NOTE | 2022-06-12 12:14 | NUR ---
Contacted nursing prior to treatment. He was resting in bed, alert/oriented and very talkative. He AROM ex to BLE ext in supine x 10 reps, including ankle DF/PF, heelslides, TKE, hip abd/add. Pt moved supine to sit with mult line management and supervision, pt insisted on moving himself. Transfer to recliner with CGA/min assist. Pt HR 101 after transfer 150, 130 initial with rest and then back to 103. 02 sats 98-94-96%, BP 99/67 to 109/59. Pt was left in chair with call beaulieu/tray in reach, nursing aware. Time with pt 35 min. A- Pt mobility limited by cardiovascular status, gait not done due to HR. AMPAC unchanged at 14, HH P- Will progress mobility/ambulate as medical status permits.
--- NOTE | 2022-06-12 13:42 | NUR ---
PT HAS BEEN WEANED FROM LEVOPHED, HAVING RECEIVED MIDODRINE THIS MORNING. BP REMAINS LOW, SO 1500 DOSE GIVEN EARLY, 84/50 ASYMPTOMATIC, TO MONITOR.
--- NOTE | 2022-06-12 14:53 | NUR ---
LEVOPHED AT 2 ANJELICA/MIN BP TOO LOW, NOW 91/60. PT ASYMPTOMATIC, RESTS IN THE BED.
--- NOTE | 2022-06-12 16:25 | NUR ---
LEVO UP TO 3 M/M FOR CONTINUED LOW BP. SON VANDANA AT BEDSIDE. PT TALKATIVE, POLITE, IN NO DISTRESS.
--- NOTE | 2022-06-12 20:00 | NUR ---
awake. denies distress. childhood friend @ bedside. construction superintendent shows afib. #20 rac ivf infusing well. po fluids taken well. voids per urinal. rt side of face remains bruised. sutures intact to rt eyebrow. fall precautions cont.
--- NOTE | 2022-06-12 21:00 | NUR ---
mom 30cc given po for constipation. melatonin 3mg po given for sleep.
--- NOTE | 2022-06-12 22:00 | NUR ---
up to bsc for bm then back to bed. ruby well. no c/o voiced.
[2022-06-13] VITALS (51 sets, daily range): BP systolic 75–129; BP diastolic 42–99
--- NOTE | 2022-06-13 00:01 | NUR ---
eyes closed. no distress. crdiac monitor shows a fib.
--- NOTE | 2022-06-13 02:00 | NUR ---
resting quietly. no distress. ivf infusing well.
--- NOTE | 2022-06-13 04:00 | NUR ---
eyes closed. no apparent distress. telemetry monitor shows a fib.
--- NOTE | 2022-06-13 04:49 | NUR ---
lab here. blood drawn.
--- NOTE | 2022-06-13 06:13 | NUR ---
eyes closed. no distress. house parent shows a fib.
[2022-06-13 07:10] LABS: ANION GAP 6 (6-22 (CALC)); BUN 14 mg/dL (8-23); BUN/CREATININE RATIO 14 (12-20 (CALC)); CARBON DIOXIDE 26 mmol/l (22-30); CHLORIDE 108 mmol/l (95-108); GFR FOR AFR.AMER. > 60 ML/MIN (>=60 (CALC)); GFR OTHER RACES > 60 ML/MIN (>=60 (CALC)); MAGNESIUM 1.8 mg/dL (1.6-2.3); POTASSIUM 4.9 mmol/l (3.5-5.1); SODIUM 134 mmol/l (137-146)
--- NOTE | 2022-06-13 09:50 | NUR ---
PT A/O, SITTING UP IN BED, WAS UP TO BSC WITH SBA, HAD MODERATE, SOFT, BROWN STOOL, DENIES PAIN/NEEDS, ATTEMPTING TO TITRATE LEVOPHED DOWN
--- NOTE | 2022-06-13 11:55 | NUR ---
Contacted nursing prior to treatment. Reported pt had been up to commode chair, BP remains low but without symptoms. Pt without complaints, refused sitting in chair because he can not do what he need to do in chair and the bed is like his chair at home. AROM ex performed to BLE 2 x 10 reps including heelslides, hip abd, SAQ and ankle DF. Pt moved supine to and from sit with supervision only and hesd of bed elevated, He is able to indep scoot up in bed. Sitting on edge of bed with supervision only posture very flexed and slightly retro pulsive. Pt stood x2 and able to walk forward and backwards 4' with CGA/min assist. Pt left in bed with call beaulieu and tray in reach. BP 80/90, 102/67 sitting, 107/62 at end of treatment. HR 75-81-79, 02sats 98-96-99%. Time with pt 40 min A- Pt heart rate controlled today, BP asymptomatic. Pt with general weakness and should progress as status improved. AMPAC unchanged at 14 HH. P- Will continue to follow and progess mobility as status permits.
--- NOTE | 2022-06-13 12:25 | NUR ---
PT ANXIOUS TO GO HOME, DISCUSSED NEED FOR LEVOPHED AT THIS TIME, PT MAICOL
--- NOTE | 2022-06-13 17:37 | NUR ---
PT MIDODRINE DOSE INCREASED, UNABLE TO WEAN OF LEVO SO FAR, WILL CONTINUE TO TITRATE
--- NOTE | 2022-06-13 19:15 | NUR ---
awake. denies distress. it sales representative shows a fib. ivf infusing well. voids per urinal. bruised face, rt eyebrow sutures cont. requires much encouragement to assist with care. fall precautions cont.
--- NOTE | 2022-06-13 22:00 | NUR ---
watching tv. no c/o voiced. cardiac technologist shows a fib.
[2022-06-14] VITALS (51 sets, daily range): BP systolic 55–267; BP diastolic 37–214
--- NOTE | 2022-06-14 00:04 | NUR ---
eyes closed. no distress. ivf infusing well.
--- NOTE | 2022-06-14 02:00 | NUR ---
resting quietly. resps even & unlabored. no apparent distress.
--- NOTE | 2022-06-14 04:00 | NUR ---
resting quietly. reps even & unlabored. no apparent distress.
--- NOTE | 2022-06-14 10:01 | NUR ---
Nursing contacted prior to treatment. Pt resting in bed with son visiting. He was without complaints reported. Pt moved supine to sit with supervision and line management. Sit to and stand with supervision. Gait in room with CGA Approx 35'. AROM to BLEs in sittiing 2x 10 reps with cueing for proper execution required. Pt stood an additional time with CGA assist x 1 min with no LOB noted, he did light touch window seal at times. BP 101/70 to 114/62, HR in 80's 02 sats 95-96, RR did increase but decreased quickly with rest. Time with pt 35 min A- Pt agreeable to ambulate today, general weakness noted. [facility] 14 HH P- Will continue to progress mobility as status permits.
--- NOTE | 2022-06-14 11:10 | NUR ---
PT HAS BEEN UP WITH PT AND IS NOW IN CHAIR, LINENS CHANGED, PT CONTINUES TO REFUSE TO WASH UP OR CHANGE BLOODY PAJAMAS HE ARRIVED IN, 250 ML BOLUS GIVEN, LEVO BEING TITRATED PER PT TOLERANCE
--- NOTE | 2022-06-14 15:34 | NUR ---
PT HAS BEEN UP TO BR TO WASH UP AND CHANGE CLOTHES, B/P UP SINCE BACK TO BED, FLUIDS OFF AT THIS TIME, PT DENIES ANY DIZZINESS, PAIN, OR SOB
--- NOTE | 2022-06-14 19:30 | NUR ---
awake. no distress. looper operator shows a fib pvcs. #20 rfa saline lock. po fluids taken well. voids per urinal. bruising cont. fall precautions cont.
--- NOTE | 2022-06-14 20:50 | NUR ---
melatonin 3mg po given for sleep.
--- NOTE | 2022-06-14 21:40 | NUR ---
tylenol 650mg po per request for neck pain.
[2022-06-15 00:01] VITALS: BP 114/61
--- NOTE | 2022-06-15 00:01 | NUR ---
eyes closed. no distress.
--- NOTE | 2022-06-15 02:00 | NUR ---
resting quietly. resps even & unlabored. no apparent distress.
[2022-06-15 02:01] VITALS: BP 139/76
[2022-06-15 04:00] VITALS: BP 139/78
--- NOTE | 2022-06-15 04:00 | NUR ---
eyes closed. no distress. color television console monitor shows a fib
[2022-06-15 06:00] VITALS: BP 131/67
--- NOTE | 2022-06-15 07:15 | NUR ---
PT IS SLEEPING, AROUSABLE TO VOICE. PT IS A&OX4. PT HAS NO C/O PAIN,SOB OR CP. PT FOLLOWS COMMANDS APPROPRIATELY. PT HAS CALL LIGHT NEAR AND ABLE TO MAKE NEEDS KNOWN. PT HAS FALL PRECAUTIONS IN PLACE. WILL CONTINUE TO MONITOR.
[2022-06-15 08:01] VITALS: BP 130/90
[2022-06-15] MEDS ORDERED: MIDODRINE5 MG PO (08:21)
[2022-06-15] MEDS ORDERED: VIBRAMYCIN100 M2 PO (08:23)
--- NOTE | 2022-06-15 09:31 | NUR ---
Attempted treatment today but pt refused, stating he was going home, continue to refuse even with much encouragement. He would not take home ex program stated he never exercises, he just keeps working.
[2022-06-15 10:01] VITALS: BP 140/86
--- NOTE | 2022-06-15 10:09 | NUR ---
PT R'CD D/C INSTRUCTIONS. PT UNDERSTANDS, ALSO SPOKE TO SON VANDANA ABOUT INSTRUCTIONS.
== END 2022-06-15 10:40 | disposition home or self-care (01) | DRG 194 ==
LOC: ED 08:45 → ED-I 11:00 → ED 11:44 → ICU 11:45
PROVIDERS: Family Medicine; Internal Medicine; ADMIT Hospitalist; ATTEND Hospitalist
PROC: 0HQ1XZZ Repair Face Skin, External Approach (ICD-10-PCS; principal; 2022-06-09)
DX: J18.9 Pneumonia, unspecified organism (principal); E87.2 Acidosis; N17.9 Acute kidney failure, unspecified; I50.22 Chronic systolic (congestive) heart failure; I95.9 Hypotension, unspecified; E86.0 Dehydration; S01.111A Laceration without foreign body of right eyelid and periocular area, initial encounter; I11.0 Hypertensive heart disease with heart failure; I48.91 Unspecified atrial fibrillation; N40.0 Benign prostatic hyperplasia without lower urinary tract symptoms; S00.33XA Contusion of nose, initial encounter; S80.12XA Contusion of left lower leg, initial encounter; S80.11XA Contusion of right lower leg, initial encounter; S40.022A Contusion of left upper arm, initial encounter; S40.021A Contusion of right upper arm, initial encounter; W18.30XA Fall on same level, unspecified, initial encounter; Y92.009 Unspecified place in unspecified non-institutional (private) residence as the place of occurrence of the external cause; Z79.01 Long term (current) use of anticoagulants; Z20.822 Contact with and (suspected) exposure to COVID-19

== ENCOUNTER 2023-02-16 16:01 | Emergency (ER) | payer MEDICARE ==
[~2023-02-16] VITALS: Ht 175.3 cm; Wt 65.2 kg
[2023-02-16] VITALS (14 sets, daily range): BP systolic 72–104; BP diastolic 40–80
[~2023-02-16 16:01] MED LIST changes: +AMOXICILLIN500 M2 PO; +DIGOXIN125 MCG PO; +ENTRESTO 49-511 TAB PO; +JARDIANCE10 MG PO; +MELATONIN5 M3 PO; +MIDODRINE5 MG PO; +TAMSULOSIN0.4 MG PO; +VIBRAMYCIN100 M2 PO
[2023-02-16 17:20] LABS: BASO% 0.5 % (0-3); IMMATURE GRANULOCYTES 0.2 % (0.0-5.0); LYMPH% 18.5 % (15-41); MEAN CORPUSCULAR HGB 33.9 pG CALC (26.0-32.0); MEAN CORPUSCULAR HGB CONC 29.3 g/dL CAL (32.0-36.0); MONO% 5.4 % (2-13); NEUT# 4.3 thou/uL (1.82-7.42); NEUT% 74.4 % (42-76); RED BLOOD COUNT 2.3 mill/uL (4.70-6.10); RED CELL DISTRI WIDTH 15.9 % (11.5-15.5)
[2023-02-16 17:28] LABS: HEMATOCRIT 26.6 % (39.0-50.0); HEMOGLOBIN 7.8 g/dl (14.0-18.0); MEAN CELL VOLUME 115.7 fL CALC (80.0-100.0)
[2023-02-16 17:29] LABS: ALBUMIN 2.8 g/dL (3.2-5.0); ALKALINE PHOSPHATASE 78 u/l (38-126); BUN 23 mg/dL (8-23); BUN/CREATININE RATIO 19 (12-20 (CALC)); CHLORIDE 117 mmol/l (95-108); CREATININE 1.2 mg/dL (0.7-1.3); GFR FOR AFR.AMER. > 60 ML/MIN (>=60 (CALC)); GFR OTHER RACES 57 ML/MIN (>=60 (CALC)); POTASSIUM 4.9 mmol/l (3.5-5.1); SGOT/AST 18 u/l (19-48); TOTAL PROTEIN 5.4 g/dL (6.3-8.2)
[2023-02-16 17:31] LABS: ANION GAP 12 (6-22 (CALC)); BILIRUBIN, TOTAL 0.3 mg/dL (0.2-1.3); CARBON DIOXIDE 17 mmol/l (22-30); SODIUM 141 mmol/l (137-146)
[2023-02-16 17:32] LABS: LIPASE 59 u/l (23-300)
== END 2023-02-16 20:05 | disposition short-term general hospital (02) ==
LOC: ED 16:01
PROVIDERS: Family Medicine
PROC: 30233N1 Transfusion of Nonautologous Red Blood Cells into Peripheral Vein, Percutaneous Approach (ICD-10-PCS; principal; 2023-02-16)
DX: J90 Pleural effusion, not elsewhere classified (principal); K92.2 Gastrointestinal hemorrhage, unspecified; D62 Acute posthemorrhagic anemia; I48.91 Unspecified atrial fibrillation; I50.9 Heart failure, unspecified; Z79.01 Long term (current) use of anticoagulants
CPT/HCPCS: P9016; Q9967; S0164

== ENCOUNTER 2023-03-07 19:26 | Inpatient (IN) | payer MEDICARE ==
[2023-03-07] VITALS (12 sets, daily range): BP systolic 40–148; BP diastolic 24–117
[~2023-03-07] VITALS: Ht 188 cm; Wt 73.5 kg
[2023-03-07 20:04] LABS: BASO% 0.5 % (0-3); EOS% 2.3 % (0-8); IMMATURE GRANULOCYTES 0.3 % (0.0-5.0); LYMPH% 36.3 % (15-41); MEAN CORPUSCULAR HGB CONC 31.5 g/dL CAL (32.0-36.0); MONO% 4.9 % (2-13); NEUT# 4.33 thou/uL (1.82-7.42); NEUT% 55.7 % (42-76); RED BLOOD COUNT 3.37 mill/uL (4.70-6.10); RED CELL DISTRI WIDTH 17.4 % (11.5-15.5)
[2023-03-07 20:05] LABS: HEMATOCRIT 34.3 % (39.0-50.0); HEMOGLOBIN 10.8 g/dl (14.0-18.0); MEAN CELL VOLUME 101.8 fL CALC (80.0-100.0)
[2023-03-07 20:11] LABS: INTERNATIONAL NORMALIZED RATIO 1.4 RATIO (0.7-1.3); PROTHROMBIN TIME 13.5 SECONDS (9.0-12.5)
[2023-03-07 20:12] LABS: ALBUMIN 2.3 g/dL (3.2-5.0); CREATININE 1.5 mg/dL (0.7-1.3); POTASSIUM 4.1 mmol/l (3.5-5.1); TOTAL PROTEIN 4.9 g/dL (6.3-8.2)
[2023-03-07 20:18] LABS: BILIRUBIN, TOTAL 0.7 mg/dL (0.2-1.3)
[2023-03-08] VITALS (208 sets, daily range): BP systolic 44–188; BP diastolic 14–154
[2023-03-09] VITALS (45 sets, daily range): BP systolic 55–143; BP diastolic 30–93
== END 2023-03-09 04:16 | disposition expired ==
LOC: ED 19:26 → ED-I 22:25 → ED 22:43 → ICU 22:44
PROVIDERS: Nurse Practitioner; ADMIT Internal Medicine; ATTEND Internal Medicine
PROC: 0T9B70Z Drainage of Bladder with Drainage Device, Via Natural or Artificial Opening (ICD-10-PCS; principal; 2023-03-08)
PROC: 02HV33Z Insertion of Infusion Device into Superior Vena Cava, Percutaneous Approach (ICD-10-PCS; 2023-03-08)
PROC: 3E043XZ Introduction of Vasopressor into Central Vein, Percutaneous Approach (ICD-10-PCS; 2023-03-08)
DX: I21.4 Non-ST elevation (NSTEMI) myocardial infarction (principal); J18.9 Pneumonia, unspecified organism; I48.20 Chronic atrial fibrillation, unspecified; I50.22 Chronic systolic (congestive) heart failure; I11.0 Hypertensive heart disease with heart failure; R57.0 Cardiogenic shock; F03.90 Unspecified dementia, unspecified severity, without behavioral disturbance, psychotic disturbance, mood disturbance, and anxiety; Z79.01 Long term (current) use of anticoagulants; Z66 Do not resuscitate; Z85.828 Personal history of other malignant neoplasm of skin; Z51.5 Encounter for palliative care
CPT/HCPCS: J1644; J2060